=== PATIENT | male | born 1950 | race Two or more races ===

== ENCOUNTER 2024-12-16 12:13 | Emergency (ER) | payer MEDICARE, MEDICAID, SELFPAY ==
[2024-12-16 12:15] VITALS: BMI 26.3
[2024-12-16 12:46] VITALS: BP 160/76; PULSE 93; RESP 18; TEMP 36.5; O2SAT 98; BMI 25.4
--- NOTE | 2024-12-16 12:49 | XR_ITS ---
Examination: CT brain head without contrast. 2-D sagittal coronal reconstructions Date and time of exam:December 16, 2024 1321 hours Comparison July 20, 2024 INDICATIONS: Dizziness headaches onset today CTDI: vol (mGy):53.9 DLP: (mGycm):1095 Technique: Multiple CT axial sections of the brain have been obtained, 5 mm slice thickness. Contrast has not been administered. 2-D sagittal, coronal reconstructions have been obtained Low dose protocols were performed. One or more of the following dose reduction techniques were used; automated exposure control, adjustment of the mA and/or KV according to patient size, use of iterative reconstruction technique. Findings: No significant ventricular enlargement. Intra-axial or extra-axial hemorrhage density is not seen. No mass effect or midline shift Basal cisterns are not remarkable. Fourth ventricle is midline. Cranial vault intact. Impression: Negative for acute hemorrhage, mass effect or midline shift Advise clinical correlation follow-up accordingly
--- NOTE | 2024-12-16 12:49 | EKG_ITS ---
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
--- NOTE | 2024-12-16 12:51 | PD.EDRME ---
Rapid Medical Screening Exam RME Arrival date/time: 12/16/24 12:13 74-year-old male with history of hypertension, type 2 diabetes presents to the emergency room with a chief complaint of a headache, dizziness, weakness, and visual disturbances x 8 days. Patient states he is having spots in his vision as well as blurry vision. I have greeted and performed a focused initial assessment of this patient. A comprehensive ED assessment and evaluation of the patient, analysis of all test results, and completion of the medical decision making process will be conducted by additional ED providers. Chief Complaint: Neuro Symptoms/Deficit Time Seen by Provider: 12/16/24 12:40 Vital signs: Vital Signs Temperature 97.7 F 12/16/24 12:46 Pulse Rate 93 12/16/24 12:46 Respiratory Rate 18 12/16/24 12:46 Blood Pressure 160/76 H 12/16/24 12:46 Pulse Oximetry (%) 98 12/16/24 12:46 Oxygen Delivery Method Room Air 12/16/24 12:46 Vital signs reviewed by provider: Yes
[2024-12-16 13:36] LABS: Basophils # (Auto) 0.1 Thou/mm3 (0.0-0.2); Basophils % (Auto) 1 % (0-2.5); Eosinophils # (Auto) 0.2 Thou/mm3 (0.0-0.5); Eosinophils % (Auto) 3 % (0-10); Hematocrit 40.2 % (41.0-53.0); Hemoglobin 13.7 g/dL (13.5-16.0); Immature Granulocytes % (Auto) 1 % (0-0); Immature Granulocytes Auto 0.03 Thou/mm3 (0.00-0.00); Lymphocytes # (Auto) 0.9 Thou/mm3 (1.0-4.8); Lymphocytes % (Auto) 14 % (10-50); Mean Corpuscular HGB Conc 34.1 g/dl (31.0-37.0); Mean Corpuscular Hemoglobin 28.8 pg (25.0-35.0); Mean Corpuscular Volume 85 fL (80-100); Monocytes # (Auto) 0.5 Thou/mm3 (0.0-0.8); Monocytes % (Auto) 7 % (0-12); Neutrophils % (Auto) 75 % (37-80); Nucleated Red Blood Cell % 0 /100 WBC (0); Platelet Count 201 Thou/mm3 (140-440); RDW Standard Deviation 43.2 fL (35.1-43.9); Red Blood Count 4.75 Miln/mm3 (4.50-5.90); White Blood Count 6.6 Thou/mm3 (3.8-10.6)
[2024-12-16 13:51] LABS: Partial Thromboplastin Time 27.8 Seconds (22.0-36.0); Prothrombin Time 10.9 Seconds (9.0-12.2)
[2024-12-16 13:52] LABS: B-Type Natriuretic Peptide 23 pg/mL (0-100)
[2024-12-16 13:53] LABS: Alanine Aminotransferase 19 U/L (10-49); Albumin, Serum 4.4 gm/dL (3.4-4.8); Albumin/Globulin Ratio 1.6 (1.2-2.2); Alkaline Phosphatase 49 U/L (46-116); Anion Gap 9 (7-16); Aspartate Amino Transferase 21 U/L (0-34); BUN/Creatinine Ratio 14 Ratio (12-20); Bilirubin,Total 0.5 mg/dL (0.3-1.2); Blood Urea Nitrogen 14 mg/dL (9-23); Carbon Dioxide 25.2 mMol/L (20.0-31.0); Chloride 105 mMol/L (98-107); Estimated Creatinine Clearance 60.8 mL/min (>60); Globulin 2.8 gm/dL (2.3-3.5); Glucose 208 mg/dL (74-106); Magnesium 1.6 mg/dL (1.6-2.6); Osmolality,Calculated 284 (275-295); Potassium 3.8 mMol/L (3.4-5.1); Sodium 139 mMol/L (136-145); Total Protein 7.2 gm/dL (5.7-8.2); Troponin I < 0.020 ng/mL (0.0-0.045); eGFR > 60 See Note
--- NOTE | 2024-12-16 18:37 | XR_ITS ---
Examination: CT chest, without intravenous contrast. CT abdomen, without intravenous contrast. CT pelvis, without intravenous contrast. 2-D sagittal and coronal reconstructions. 3-D reconstructions. Date and time of exam:December 16, 2024 1840 hours INDICATIONS: Chest and midline abdominal pain beginning 3 days ago, history kidney stones CTDI vol (mgy) 6.76 DLP (MGycm)535 Technique: Multiple CT images, 3.0 mm slice thickness, obtained chest, abdomen, pelvis, with the high-resolution 64 slice scanner.. Sagittal and coronal 2-D reconstructions are obtained. 3-D reconstructions Low dose protocols were performed. One or more of the following dose reduction techniques were used; automated exposure control, adjustment of the mA and/or KV according to patient size, use of iterative reconstruction technique. Findings: AP dimension ascending thoracic aorta 3.3 cm Pulmonary artery segments are not enlarged. No paratracheal tracheobronchial or bronchopulmonary adenopathy No pneumonia or pulmonary edema Moderate elevation left hemidiaphragm No liver or splenic lesion Gallbladder is degraded by patient motion No pancreatic or adrenal mass 4 mm upper pole left renal calculus No hydronephrosis or ureteral calculi Aorta normal size Normal appendix No bowel obstruction Prostatomegaly AP dimension 5.2 cm Suspicious on this noncontrast study for 3 cm prostate nodule, axial image 306 Contracted urinary bladder Tiny fat-containing inguinal hernias Advanced disc narrowing L1-L2 Moderate narrowing hip joints IMPRESSION: No mediastinal lymphadenopathy No pneumonia or pulmonary edema or pleural disease 4 mm upper pole nonobstructing left renal calculus, no hydronephrosis or ureteral calculi Normal appendix Prostatomegaly, AP dimension 5.2 cm Suspicious for 3 cm prostate nodule, recommend correlation with PSA and consider follow-up transrectal prostate sonography
--- NOTE | 2024-12-16 20:41 | PD.EDDIZZY ---
ED Dizzyness RME/HPI General Chief Complaint: Neuro Symptoms/Deficit Stated Complaint: DIZZINESS, HEADACHE, WEAKNESS X8DAYS Time Seen by Provider: 12/16/24 12:40 Arrival date/time: 12/16/24 12:13 RME / HPI RME / HPI Narrative: 12/16/24 12:13 74-year-old male with history of hypertension, type 2 diabetes presents to the emergency room with a chief complaint of a headache, dizziness, weakness, and visual disturbances x 8 days. Patient states he is having spots in his vision as well as blurry vision. I have greeted and performed a focused initial assessment of this patient. A comprehensive ED assessment and evaluation of the patient, analysis of all test results, and completion of the medical decision making process will be conducted by additional ED providers. This section includes all my notes and documentations, including HPI, PE, and ED course. Marcus Bowden MD HPI: 74-year-old male here to be evaluated with about a week history of on and off posterior headache, dizziness (describes spinning sensation), generalized weakness, and visual disturbances. No speech impairment. No loss of power in the arms or legs. No chest pain or shortness of breath. No numbness or tingling. No fever or chills. No cough or congestion. No other complaints. ROS: All negative except as documented in HPI. Physical Exam: General: Alert and oriented. No acute distress. Eyes: Conjunctivae and lids clear. EOMI. PERRL. ENT: No nasal congestion. Pharynx normal. Tympanic membrane normal bilaterally. Neck: Supple. No lymphadenopathy. No JVD. Heart: RRR. Lungs: No respiratory distress. Good air movement. No rhonchi, wheezing, rales. Chest: No tenderness. Abdomen: Soft and nontender. Normal bowel sounds. No distension. No rebound or guarding. Back: No CVA tenderness. Legs: No clubbing, cyanosis, edema. Skin: Warm and dry. Neuro: Alert and oriented X 3. Cranial Nerves II-XII grossly intact. No peripheral motor deficits. I reviewed all diagnostic test results. My interpretation of the EKG is sinus rhythm with no acute ST?T changes. My review of the CT reports is no acute findings. Blood tests unremarkable. At this point, diagnoses include headache and vertigo. Recommended supportive care and more outpatient workup. Based on my best medical judgment, made decision no further evaluation or treatment indicated at this time. Patient understands and agrees to the discharge instructions customized and printed, see below. Discharge instructions from Dr. Bowden: ? After extensive evaluation, there is no life-threatening condition.? Such as stroke or brain tumor or heart attack. -- Tylenol with codeine for your headache in the back. -- Use scopolamine patch and/or meclizine for your dizziness. -- Increase oral fluid to prevent dehydration.? Maintain clear urine.? If dark or yellow, increase oral fluid. -- And do everything very slowly.? Including moving your head.? And when you sit up or stand up, wait a minute before you progress.? -- See your private doctor on 12/17/2024 for recheck and further care. Ask to review all test results and official radiology reports, to make sure you receive all necessary follow-ups and monitoring. If needed, ask to help you get more care not available here in the ER.? Such as MRI imaging of your brain, physical therapy, table tilt test, and referrals to see specialists (such as neurologist and ENT specialist). -- Read attached handout.? Seek immediate medical care with worsening or with any concerns. Instrucciones de maría elena del Dr. Bowden: ? Tras sarah evaluaci?n exhaustiva, no se post detectado ninguna afecci?n potencialmente mortal, pamela un derrame cerebral, un tumor cerebral o un infarto. -- Tylenol con code?na para el dolor de espalda. -- Use un parche de escopolamina o meclizina para los mareos. -- Aumente la ingesta de l?quidos para prevenir la deshidrataci?n. Mantenga la orina dylan. Si es oscura o amarilla, aumente la ingesta de l?quidos. -- Gunnar todo muy lentamente, incluyendo international bank manager la dorian. Al incorporarse o levantarse, espere un minuto antes de continuar. -- Consulte a plaza m?dico de cabecera el 17/12/2024 para sarah nueva revisi?n y recibir atenci?n adicional. -- Solicite la revisi?n de todos los resultados de las pruebas y los informes radiol?gicos oficiales para asegurarse de recibir todos los seguimientos y la monitorizaci?n necesarios. -- Si es necesario, solicite ayuda para obtener m?s atenci?n que no est? disponible en urgencias. Pamela im?genes por resonancia magn?kenna del cerebro, fisioterapia, prueba de inclinaci?n de la white y derivaciones a especialistas (pamela neur?logos y otorrinolaring?logos). -- Melania el folleto adjunto. Busque atenci?n m?dica inmediata si presenta empeoramiento o cualquier inquietud. Marcus Bowden MD Related Data Home Medications ?Medication ?Instructions ?Recorded ?Confirmed finasteride 5 mg tablet 5 mg PO QDAY 02/15/23 02/15/23 linagliptin 5 mg-metformin ER 1 tab PO QDAY 02/15/23 02/15/23 1,000 mg tablet,extended release 24 hr (Jentadueto XR) oxybutynin chloride 5 mg 5 mg PO QDAY 02/15/23 02/15/23 tablet,extended release 24 hr tamsulosin 0.4 mg capsule 0.4 mg PO BID 02/15/23 02/15/23 Previous Rx's ?Medication ?Instructions ?Recorded lisinopril 10 mg tablet 10 mg PO QDAY #30 tabs 02/18/20 meloxicam 7.5 mg tablet 7.5 mg PO QDAY #14 tabs 02/11/24 ciprofloxacin HCl 500 mg tablet 500 mg PO BID #14 tabs 03/11/24 (Cipro) ibuprofen 600 mg tablet 600 mg PO Q8H PRN pain #20 tabs 07/20/24 acetaminophen 300 mg-codeine 30 mg 2 tab PO Q8H PRN pain #20 tabs 12/16/24 tablet meclizine 25 mg tablet 25 mg PO BID PRN dizziness #20 tabs 12/16/24 scopolamine base 1 mg over 3 days 1 mg topical .q72 hours PRN 12/16/24 transdermal patch (Transderm-Scop) dizziness or vertigo #4 ea Allergies Allergy/AdvReac Type Severity Reaction Status Date / Time Penicillins Allergy Intermediate ANXIETY/CATHERINE Verified 12/16/24 12:18 LUCINATIONS Course Quality Measures none Orders Category Date Time Status EKG (ED ONLY) *Do not use* NOW Care 12/16/24 12:[address] chest abdomen pelvis wo Stat Exams 12/16/24 18:[address] head/brain wo con Stat Exams 12/16/24 12:49 Completed EKG (ED Only) Stat Exams 12/16/24 12:49 Draft B-Type Natriuretic Peptide Stat Lab 12/16/24 13:13 Completed CBC Stat Lab 12/16/24 13:13 Completed Comprehensive Metabolic Panel Stat Lab 12/16/24 13:13 Completed Magnesium Stat Lab 12/16/24 13:13 Completed Partial Thromboplastin Time Stat Lab 12/16/24 13:13 Completed Prothrombin Time with INR Stat Lab 12/16/24 13:13 Completed Troponin I Stat Lab 12/16/24 13:13 Completed Vital Signs Vital signs: Vital Signs Temperature 97.7 F 12/16/24 12:46 Pulse Rate 93 12/16/24 12:46 Respiratory Rate 18 12/16/24 12:46 Blood Pressure 160/76 H 12/16/24 12:46 Pulse Oximetry (%) 98 12/16/24 12:46 Oxygen Delivery Method Room Air 12/16/24 12:46 Dizziness Patient data External records reviewed:: [facility] previous records Clinical information provided by:: patient Social determinants that could affect healthcare access:: none Patient has the following chronic illnesses:: Diabetes How is presenting disease/condition affected by chronic disease/condition?: exacerbated by Evaluation data The following diagnostics were reviewed and interpreted by me:: lab results, radiology exam(s) and EKG tracing(s) Lab and/or radiology exams considered but not ordered:: None Interpretation Summary: Normal diagnostics Medications / Prescriptions Medications or Prescriptions considered but not ordered:: None Medication administrations:: None Consultations Consultation(s) initiated? (list below): No Diagnosis Dizziness Differential Diagnosis: adverse reaction to drug, benign paroxysmal positional vertigo, orthostatic hypotension, vertebral basilar insufficiency, cerebrovascular accident, acute vestibular neuronitis, transient cerebral ischemia and other (Migraine headache, tension headache, MS, dehydration, electrolyte abnormalities) Most likely diagnosis given after review of the tests above:: Vertigo and tension headache Admission Indicated Admission indicated?: not indicated Explain why admission is indicated or not indicated:: There was no indication for admission. Admission Request Was there a request for admission?: No Disposition Plan Disposition Plan: Discharge Discharge Attestation Discharge Attestation: The patient and all family members were given an opportunity to ask questions and understood the discharge instructions. Discharge instructions specifically effects, indications for sooner follow up or return to the emergency department, and the expected course of current diagnosis. Patient condition: Stable Discharge Plan Plan Patient Disposition: HOME (Self Care) Prescriptions/Referrals Prescriptions/Med Rec: New acetaminophen-codeine 300-30 mg tablet 2 tab PO Q8H MDD 6 PRN (Reason: pain) Qty: 20 0RF meclizine 25 mg tablet 25 mg PO BID PRN (Reason: dizziness) Qty: 20 0RF scopolamine base [Transderm-Scop] 1 mg over 3 days patch 3 day 1 mg topical .q72 hours PRN (Reason: dizziness or vertigo) Qty: 4 0RF No Action lisinopril 10 mg tablet 10 mg PO QDAY Qty: 30 0RF tamsulosin 0.4 mg capsule 0.4 mg PO BID Patient Comments: TAKE 1 CAPSULE BY MOUTH TWICE DAILY oxybutynin chloride 5 mg tablet extended release 24hr 5 mg PO QDAY Patient Comments: TAKE 1 TABLET BY MOUTH EVERY DAY finasteride 5 mg tablet 5 mg PO QDAY Patient Comments: TAKE 1 TABLET BY MOUTH EVERY DAY Jentadueto XR 5-1,000 mg tablet, IR - ER, biphasic 24hr 1 tab PO QDAY Patient Comments: TAKE 1 TABLET BY MOUTH EVERY DAY WITH A MEAL meloxicam 7.5 mg tablet 7.5 mg PO QDAY Qty: 14 0RF ciprofloxacin HCl [Cipro] 500 mg tablet 500 mg PO BID Qty: 14 0RF ibuprofen 600 mg tablet 600 mg PO Q8H PRN (Reason: pain) Qty: 20 0RF Referrals: No Primary/Family,Physician [Primary Care Provider] - In 1 week Problem List Clinical Impression: Dizziness, Headache Patient/Caregiver Discharge Instructions Education Materials: ED Dizziness, Uncertain Cause Additional Instructions: Discharge instructions from Dr. Bowden: ? After extensive evaluation, there is no life-threatening condition.? Such as stroke or brain tumor or heart attack. -- Tylenol with codeine for your headache in the back. -- Use scopolamine patch and/or meclizine for your dizziness. -- Increase oral fluid to prevent dehydration.? Maintain clear urine.? If dark or yellow, increase oral fluid. -- And do everything very slowly.? Including moving your head.? And when you sit up or stand up, wait a minute before you progress.? -- See your private doctor on 12/17/2024 for recheck and further care. Ask to review all test results and official radiology reports, to make sure you receive all necessary follow-ups and monitoring. If needed, ask to help you get more care not available here in the ER.? Such as MRI imaging of your brain, physical therapy, table tilt test, and referrals to see specialists (such as neurologist and ENT specialist). -- Read attached handout.? Seek immediate medical care with worsening or with any concerns. Instrucciones de maría elena del Dr. Bowden: ? Tras sarah evaluaci?n exhaustiva, no se post detectado ninguna afecci?n potencialmente mortal, pamela un derrame cerebral, un tumor cerebral o un infarto. -- Tylenol con code?na para el dolor de espalda. -- Use un parche de escopolamina o meclizina para los mareos. -- Aumente la ingesta de l?quidos para prevenir la deshidrataci?n. Mantenga la orina dylan. Si es oscura o amarilla, aumente la ingesta de l?quidos. -- Gunnar todo muy lentamente, incluyendo international bank manager la dorian. Al incorporarse o levantarse, espere un minuto antes de continuar. -- Consulte a plaza m?dico de cabecera el 17/12/2024 para sarah nueva revisi?n y recibir atenci?n adicional. -- Solicite la revisi?n de todos los resultados de las pruebas y los informes radiol?gicos oficiales para asegurarse de recibir todos los seguimientos y la monitorizaci?n necesarios. -- Si es necesario, solicite ayuda para obtener m?s atenci?n que no est? disponible en urgencias. [place] im?genes por resonancia magn?kenna del cerebro, fisioterapia, prueba de inclinaci?n de la white y derivaciones a especialistas (pamela neur?logos y otorrinolaring?logos). -- Melania el folleto adjunto. Busque atenci?n m?dica inmediata si presenta empeoramiento o cualquier inquietud. Print Language: Monegasque Stand Alone Forms: Kate Award Info., Patient Portal Info Letter
[2024-12-16 20:50] VITALS: RESP 18
== END 2024-12-16 20:51 | disposition home or self-care (01) ==
PROVIDERS: Nurse Practitioner Family; Emergency Provider Emergency Medicine
DX: R42 Dizziness and giddiness (principal); R51.9 Headache, unspecified; E11.9 Type 2 diabetes mellitus without complications; I10 Essential (primary) hypertension
CPT/HCPCS: 36415; 70450; 71250; 74176; 80053; 83735; 83880; 84484; 85025; 85610; 85730; 93005; 99284

== ENCOUNTER → 2025-01-13 | Outpatient (BNVA) | payer MEDICARE, MEDICAID, SELFPAY | END | disposition home or self-care (01) | PROVIDERS: PCP Family Medicine; Referring Provider Family Medicine; Visit Provider Urology | DX: N40.1 Benign prostatic hyperplasia with lower urinary tract symptoms (principal); N13.8 Other obstructive and reflux uropathy; N32.81 Overactive bladder; N41.9 Inflammatory disease of prostate, unspecified; N48.0 Leukoplakia of penis; N40.2 Nodular prostate without lower urinary tract symptoms; I10 Essential (primary) hypertension; E11.9 Type 2 diabetes mellitus without complications; E78.00 Pure hypercholesterolemia, unspecified; K21.9 Gastro-esophageal reflux disease without esophagitis; E66.9 Obesity, unspecified; Z68.26 Body mass index [BMI] 26.0-26.9, adult | CPT/HCPCS: 81003; 99212; 99213; G0463 ==

== ENCOUNTER → 2025-01-30 | Outpatient (BNVA) | payer MEDICARE, MEDICAID, SELFPAY | END | disposition home or self-care (01) | PROVIDERS: PCP Family Medicine; Referring Provider Family Medicine; Visit Provider Urology | DX: N40.1 Benign prostatic hyperplasia with lower urinary tract symptoms (principal); R39.12 Poor urinary stream; I10 Essential (primary) hypertension; E78.00 Pure hypercholesterolemia, unspecified; K21.9 Gastro-esophageal reflux disease without esophagitis; E11.9 Type 2 diabetes mellitus without complications | CPT/HCPCS: 51741; 51798 ==

== ENCOUNTER → 2025-02-18 | Outpatient (BNVA) | payer MEDICARE, MEDICAID, SELFPAY | END | disposition home or self-care (01) | PROVIDERS: PCP Family Medicine; Referring Provider Family Medicine; Visit Provider Urology | DX: N42.89 Other specified disorders of prostate (principal); N40.1 Benign prostatic hyperplasia with lower urinary tract symptoms; N13.8 Other obstructive and reflux uropathy; I10 Essential (primary) hypertension; E78.00 Pure hypercholesterolemia, unspecified; K21.9 Gastro-esophageal reflux disease without esophagitis; E11.9 Type 2 diabetes mellitus without complications | CPT/HCPCS: 55700; 76942; 81003; 96372; A4649; J1580; J3490; A9270 ==

== ENCOUNTER 2025-04-30 08:41 | Inpatient (IN) | payer MEDICARE, MEDICAID, SELFPAY ==
[2025-04-30] VITALS (10 sets, daily range): BP systolic 107–141; BP diastolic 61–74; PULSE 44–84; RESP 14–97; TEMP 36.3–36.8; O2SAT 96–98; BMI 26.1
--- NOTE | 2025-04-30 09:17 | PD.EDRME ---
Rapid Medical Screening Exam RME Arrival date/time: 04/30/25 08:41 Chief Complaint: General Adult/Misc Complain Vital signs: Vital Signs Temperature 98.0 F 04/30/25 08:53 Pulse Rate 64 04/30/25 08:53 Respiratory Rate 17 04/30/25 08:53 Blood Pressure 117/70 04/30/25 08:53 Pulse Oximetry (%) 98 04/30/25 08:53 Oxygen Delivery Method Room Air 04/30/25 08:53 Pulse ox is 98% room air Vital signs reviewed by provider: Yes RME Narrative: 74-year-old male presents to urgent care with a complaint of chest pressure with intermittent pain that radiates up to the left upper extremity and then down. This has been ongoing for couple of days. Patient has had this happen in the past and it is intermittent, today he says it is the worst it has ever been.
--- NOTE | 2025-04-30 09:19 | XR_ITS ---
Examination: PA lateral chest 2 views TECHNIQUE: Upright PA lateral chest 2 views Date and time: April 30, 2002 5 0928 hours INDICATIONS: Left-sided chest pain beginning 2 weeks ago. FINDINGS: Normal heart size. Lungs are clear. The osseous structures are intact IMPRESSION: No active disease.
[2025-04-30 10:01] LABS: Basophils # (Auto) 0.1 Thou/mm3 (0.0-0.2); Basophils % (Auto) 1 % (0-2.5); Eosinophils # (Auto) 0.2 Thou/mm3 (0.0-0.5); Eosinophils % (Auto) 3 % (0-10); Hematocrit 39.7 % (41.0-53.0); Hemoglobin 13.3 g/dL (13.5-16.0); Immature Granulocytes Auto 0.03 Thou/mm3 (0.00-0.00); Lymphocytes # (Auto) 0.8 Thou/mm3 (1.0-4.8); Lymphocytes % (Auto) 13 % (10-50); Mean Corpuscular HGB Conc 33.5 g/dl (31.0-37.0); Mean Corpuscular Hemoglobin 29.0 pg (25.0-35.0); Mean Corpuscular Volume 87 fL (80-100); Monocytes # (Auto) 0.6 Thou/mm3 (0.0-0.8); Monocytes % (Auto) 10 % (0-12); Neutrophils # (Auto) 4.5 Thou/mm3 (1.8-7.7); Neutrophils % (Auto) 74 % (37-80); Nucleated Red Blood Cell # 0.00 Thou/mm3 (0.00-0.00); Nucleated Red Blood Cell % 0 /100 WBC (0); Platelet Count 168 Thou/mm3 (140-440); RDW Standard Deviation 44.6 fL (35.1-43.9); Red Blood Count 4.59 Miln/mm3 (4.50-5.90); White Blood Count 6.1 Thou/mm3 (3.8-10.6)
[2025-04-30 10:15] LABS: INR 1.0 (0.9-1.3); Partial Thromboplastin Time 26.2 Seconds (22.0-36.0); Prothrombin Time 10.9 Seconds (9.0-12.2)
[2025-04-30 10:21] LABS: Alanine Aminotransferase 19 U/L (10-49); Albumin, Serum 4.3 gm/dL (3.4-4.8); Albumin/Globulin Ratio 1.8 (1.2-2.2); Alkaline Phosphatase 38 U/L (46-116); Anion Gap 6 (7-16); Aspartate Amino Transferase 24 U/L (0-34); B-Type Natriuretic Peptide 22 pg/mL (0-100); BUN/Creatinine Ratio 14 Ratio (12-20); Bilirubin,Total 0.6 mg/dL (0.3-1.2); Blood Urea Nitrogen 15 mg/dL (9-23); Calcium 9.5 mg/dL (8.3-10.6); Calcium (Corrected) 9.5 mg/dL (8.5-10.1); Carbon Dioxide 26.9 mMol/L (20.0-31.0); Chloride 107 mMol/L (98-107); Creatinine (Component) 1.1 mg/dL (0.6-1.3); Estimated Creatinine Clearance 51.6 mL/min (>60); Globulin 2.4 gm/dL (2.3-3.5); Glucose 147 mg/dL (74-106); LDH (Lactate Dehydrogenase) 271 U/L (120-246); Magnesium 1.6 mg/dL (1.6-2.6); Osmolality,Calculated 283 (275-295); Potassium 4.0 mMol/L (3.4-5.1); Sodium 140 mMol/L (136-145); Total Protein 6.7 gm/dL (5.7-8.2); Troponin I < 0.020 ng/mL (0.0-0.045); eGFR > 60 See Note
--- NOTE | 2025-04-30 10:21 | PC.NURSE ---
PT REPORTS HE HAS A PRESSURE FEELING IN HIS CHEST, DENIES HAVING THE FEELING BEFORE. ALSO REPORTS HAVING PAIN TO RIGHT LOWER BACK THAT RADIATES DOWN TO HIS RIGHT KNEE. PT UPDATED ON POC AND IN AGREEMENT, VSS ON TELE.
[2025-04-30 10:27] LABS: Collection Type, Urine Clean Catch
[2025-04-30 10:34] LABS: Bacteria,Urine Rare; Bilirubin,Urine Negative (Negative); Blood,Urine Negative (Negative); Clarity,Urine Clear (Clear/Hazy); Color,Urine Yellow (Lt Yel-Yel); Glucose, Urine Negative (Negative); Ketones,Urine Negative (Negative); Leukocyte Esterase,Urine Negative (Negative); Nitrite,Urine Negative (Negative); PH,Urine 5.5 (5.0-7.0); Protein,Urine Negative (Neg - Trace); RBC,Urine 1 /hpf (0-3); Specific Gravity,Urine 1.022 (1.001-1.035); Squamous Epithelial Cell,Urine 1 /hpf (0-5); Urobilinogen,Urine Negative mg/dL (0.0-1.0); WBC,Urine 1 /hpf (0-5)
[2025-04-30 10:37] LABS: Amphetamine/Methamp Scrn,U Negative (Negative); Barbiturate Screen,Urine Negative (Negative); Benzodiazepines Screen,Urine Negative (Negative); Benzoylecgonine Screen, Ur Negative (Negative); Fentanyl Screen,Urine Negative (Negative); Opiate Screen,Urine Negative (Negative); THC Screen,Urine Negative (Negative)
--- NOTE | 2025-04-30 11:28 | EDNOTE_ITS ---
<Statement entered by Estela Shukla MD - 04/30/25 15:10> I, Estela Shukla MD, have reviewed the history, exam, and assessment of the patient. I have evaluated the patient independently and agree with the plan of care documented by [ ]. All diagnostic studies were reviewed and discussed. I confirm the diagnosis as documented by the Resident. I was present during the Medical Decision Making for this patient. The patient's plan of care was created between myself and the Resident and consistent with our discussion of the patient's case. ED General RME/HPI General Chief complaint: General Adult/Misc Complain Stated complaint: Burning left upper chest X 15 days,itching Arrival date/time: 04/30/25 08:41 RME / HPI RME / HPI narrative: 74-year-old male presents to urgent care with a complaint of chest pressure with intermittent pain that radiates up to the left upper extremity and then down. This has been ongoing for couple of days. Patient has had this happen in the past and it is intermittent, today he says it is the worst it has ever been. 74-year-old male with past medical history of hypertension, BPH, and DM2 came into the ED with chief complaints of chest pain that has been going on for around 2 weeks now. He states that he has left-sided chest pain that radiates to his left upper extremity. Chest pain is pressure-like in nature and is not exacerbated or relieved with rest or with exertion. He does mention that his chest pain sometimes last all day and sometimes last a few minutes. He also mentions that he has some shortness of breath with exertion, but no chest pain with exertion. Patient follows up outpatient with Dr. Brooke and patient stated that he was supposed to have a procedure for his heart to look at his arteries, but does not remember the name. Patient also states that he has been feeling dizzy, but has not had any nausea or vomiting. Otherwise has no other complaints at this time. Related Data Home Medications ?Medication ?Instructions ?Recorded ?Confirmed linagliptin 5 mg-metformin ER 1 tab PO QDAY 02/15/23 0 02/18/25 1,000 mg tablet,extended release 24 hr (Jentadueto XR) oxybutynin chloride 5 mg 5 mg PO QDAY 02/15/23 tablet,extended release 24 hr clotrimazole-betamethasone 1 1 applic topical BID 12/2502/18/25 %-0.05 % topical cream Previous Rx's ?Medication ?Instructions ?Recorded lisinopril 10 mg tablet 10 mg PO QDAY #30 tabs 02/17 ibuprofen 600 mg tablet 600 mg PO Q8H PRN pain #20 t abs 07/20/24 scopolamine base 1 mg over 3 days 1 mg topical .q72 ho urs PRN 12/16/24 transdermal patch (Transderm-Scop) dizziness or vertig o #4 ea Allergies Allergy/AdvReac Type Severity Reaction Status Date / Time Penicillins Allergy Intermediate ANXIETY/CATHERINE Verified 04/30/25 08:46 LUCINATIONS Review of Systems Review of Systems Systems Reviewed: All systems reviewed, normal except as documented Past Medical History Past Medical History NEUROLOGIC: Negative Neurological Disorders CARDIAC: Positive Cardiac Disorders, Angina, Hypercholesterolemia and Hypertension; Negative Congestive Heart Failure RESPIRATORY: Negative Chronic Obstructive Pulmonary Disease (COPD) GASTROINTESTINAL: Positive Gastrointestinal Disorders and Gastroesophageal Reflux Disease GENITOURINARY: Positive Benign Prostatic Hyperplasia; Negative Genitourinary Disorders or Renal Disease MUSCULOSKELETAL: Positive Musculoskeletal Disorders, Arthritis and Fractures ENDOCRINE: Positive Endocrine Disorders and Diabetes Mellitus Type 2; Negative Diabetes Mellitus Type 1 HEMATOLOGIC: Negative Blood Disorders OTHER HISTORY: Negative Autoimmune Disease Family History FAMILY HISTORY: Negative Family Respiratory Disorders, Family Cardiac Disorders, Family Gastrointestinal Problems, Family Cancer, Family Surgery or Family Anesthesia Reaction Surgical History SURGICAL: Positive Transurethral Resection Social History SMOKING STATUS: Never smoker SUBSTANCE USE: does not use ED Exam Narrative Physical exam: Gen: A&O X 3, NAD HEENT: NCAT, EOMI, Pupils reactive ZACARIAS, not icteric. External ears normal. No rhinorrhea. Moist mucous membranes. Neck: Supple, full range of motion, no observable masses, No meningeal sign. Lungs: No Respiratory distress, clear bilateral. CV: RRR, no murmurs. Abdomen: Soft, nondistended, No rebound tenderness. MSK: No joint swelling, no redness, peripheral pulses presents, lumbar with no edema. Skin: No rashes, petechiae, lesions.. Neuro: No focal neurological deficits appreciated, sensory and motor intact. Psych: Cooperative, appropriate mood and effect. Course Quality Measures none Orders Category Date Time Status COVID-19 Screening Questionnaire NOW Care 04/30/25 11:33 Active Decision to Admit X1 Care 04/30/25 11:33 Active EKG (ED ONLY) *Do not use* NOW Care 04/30/25 09:19 Completed Consult to Cardiology Stat Cons 04/30/25 11:30 Ordered EKG (ED Only) Stat Exams 04/30/25 09:19 Ordered XR chest 2V Stat Exams 04/30/25 09:19 Completed B-Type Natriuretic Peptide Stat Lab 04/30/25 09:39 Completed CBC Stat Lab 04/30/25 09:39 Completed Comprehensive Metabolic Panel Stat Lab 04/30/25 09:39 Completed Drug Screen,Urine Stat Lab 04/30/25 10:18 Completed LDH (Lactate Dehydrogenase) Stat Lab 04/30/25 09:39 Completed Magnesium Stat Lab 04/30/25 09:39 Completed Partial Thromboplastin Time Stat Lab 04/30/25 09:39 Completed Prothrombin Time with INR Stat Lab 04/30/25 09:39 Completed Troponin I Stat Lab 04/30/25 09:39 Completed Troponin I Stat Lab 04/30/25 11:27 Ordered Urinalysis Stat Lab 04/30/25 10:18 Completed Vital Signs Vital signs: Vital Signs Temperature 98.0 F 04/30/25 08:53 Pulse Rate 64 04/30/25 08:53 Respiratory Rate 17 04/30/25 08:53 Blood Pressure 117/70 04/30/25 08:53 Pulse Oximetry (%) 98 04/30/25 08:53 Oxygen Delivery Method Room Air 04/30/25 08:53 Discharge Plan Plan Patient Disposition: Admit Acute Care w/in Hospital Prescriptions/Referrals Prescriptions/Med Rec: No Action clotrimazole-betamethasone 1-0.05 % cream 1 applic topical BID lisinopril 10 mg tablet 10 mg PO QDAY Qty: 30 0RF oxybutynin chloride 5 mg tablet extended release 24hr 5 mg PO QDAY Patient Comments: TAKE 1 TABLET BY MOUTH EVERY DAY Jentadueto XR 5-1,000 mg tablet, IR - ER, biphasic 24hr 1 tab PO QDAY Patient Comments: TAKE 1 TABLET BY MOUTH EVERY DAY WITH A MEAL scopolamine base [Transderm-Scop] 1 mg over 3 days patch 3 day 1 mg topical .q72 hours PRN (Reason: dizziness or vertigo) Qty: 4 0RF ibuprofen 600 mg tablet 600 mg PO Q8H PRN (Reason: pain) Qty: 20 0RF Referrals: Goran Richard MD [Primary Care Provider] - In 1 week Problem List Clinical Impression: Atypical chest pain Patient/Caregiver Discharge Instructions Print Language: Belarusian Stand Alone Forms: Kate Award Info., Patient Portal Info Letter MDM Narrative [facility] hospital course: I saw and assessed the patient personally upon arrival to the room. 11: 15: Saw the patient after reviewing the chart. Initial troponins were negative and EKG did not show any major changes as compared to previous one. Patient's pain has subsided at time of evaluation. 11: 25: Spoke with naphthalene operator helper who stated to admit the patient and that he will consult. 11: 27: Spoke with IM resident for hospital admission. Will look at the patient for admission. Case disclosed with Attending Dr. Gayla Landon PGY2 Disclaimer: Even though this this note was dictated by speech recognition and even though it was carefully revised there may still be minor errors in healthcare associate due to voice recognition software.
[2025-04-30 12:25] LABS: Troponin I < 0.020 ng/mL (0.0-0.045)
[2025-04-30 13:00] LABS: Glucose Estimated Average 134 mg/dL (80-131); Hemoglobin A1C 6.3 % Hgb (4.8-6.0)
[2025-04-30 13:03] LABS: Cardiac Risk Estimate 2.8 RATIO (4.0-6.7); Cholesterol 126 mg/dL (132-200); Free T4 (Free Thyroxine) 1.31 ng/dL (0.89-1.76); HDL Cholesterol 45 mg/dL (40-60); LDL Cholesterol,Calculated 62 mg/dL (0-130); Thyroid Stimulating Hormone 3.46 uIU/mL (0.55-4.78); Triglycerides 94 mg/dL (30-150)
[2025-04-30] MEDS: HEPARIN SOD INJ 5000 UNIT/ML VIAL SC ×2 (13:20→21:57)
--- NOTE | 2025-04-30 17:02 | ESHP_ITS ---
<Statement entered by Rodrick Jay MD - 05/01/25 16:55> Patient was seen and examined at bedside. I agree on the assessment and plan on this note as documented by resident Juani Esqueda PGY1. 74-year-old Ukrainian-speaking male with past medical history of type 2 diabetes mellitus, dyslipidemia, hypertension and BPH who presented to [facility] emergency department on May 01, 2025 with chief complaint of dizziness, cardiac chest pain. Patient's EKG showed no acute ST-T changes, troponin negative. Repeat troponin negative as well. Patient does have underlying symptomatic bradycardia, consulted cardiology, per Dr. Brooke patient was evaluated by him outpatient likely needs pacemaker placement however patient is undecided on the procedure. We will admit patient for ACS workup and symptomatic bradycardia for cardiac evaluation. Hold home medications for now, patient's heart rate does go down to 30s does not sustain however patient is sustaining an low 50s. Patient disposition telemetry, pending cardiology evaluation. Case discussed with attending Dr. Alcala. Rodrick Jay MD PGY-2 Documentation for date of: 04/30/25 HPI History of Present Illness Chief complaint: cardiac chest pressure, SOB on exertion History of present illness: Mr. Matute is a 74 years old male with past medical history of dyslipidemia, diabetes type 2, BPH, hypertension, who presented to ED for 2 weeks of pressure-like pain of the chest, the pain is constant and radiates to the left arm. Patient also endorses dizziness, visual disturbances and shortness of breath on exertion. Patient denies diaphoresis, nausea, vomiting, abdominal pain, urinary symptoms. ED course : - Initial Vitals were BP 117/70, pulse 64, RR 15, temp 98.2, O2 sat 97 on room air. - labs significant for Hemoglobin 13.3, hematocrit 39.7, anion gap 6, glucose 147, alkaline phosphatase 30, lactic dehydrogenase 271, troponin <than 0.020 - EKG done in the ED shows symptomatic bradycardia, imaging included chest x-ray which showed no abnormalities. - In ED, Dr. Brooke was consulted for atypical chest pain. He recommended repeat troponin, EKG and echo. Admitted patient for further evaluation of cardiac chest pain. Past medical history: As above Family history: not pertinent Surgical history: Prostate surgery, Social history: Denies alcohol history, denies smoking history and illicit drug use. Allergies: Penicillin Review of Systems Review of Systems Systems Reviewed: All systems reviewed, normal except as documented Exam Vital Signs Temp Pulse Resp BP Pulse Ox O2 Del Method 98.2 F 60 15 111/71 97 Room Air 04/30/25 12:23 04/30/25 16:09 04/30/25 16:09 04/30/25 16:09 04/30/25 16:09 04/30/25 14:09 Results: Labs 05/01/25 06:09 05/01/25 06:09 Labs: Short CBC 04/30/25 Range/Units 09:39 WBC 6.1 (3.8-10.6) Thou/mm3 Hgb 13.3 L (13.5-16.0) g/dL Hct 39.7 L (41.0-53.0) % Plt Count 168 (140-440) Thou/mm3 BMP 04/30/25 09:39 Sodium 140 Potassium 4.0 Chloride 107 Carbon Dioxide 26.9 BUN 15 Creatinine 1.1 Glucose 147 H Calcium 9.5 Cardiac Enzymes 04/30/25 04/30/25 Range/Units 09:39 11:45 Troponin I < 0.020 < 0.020 (0.0-0.045) ng/mL Liver Function 04/30/25 Range/Units 09:39 Total Bilirubin 0.6 (0.3-1.2) mg/dL AST 24 (0-34) U/L ALT 19 (10-49) U/L Alkaline Phosphatase 38 L (46-116) U/L Albumin 4.3 (3.4-4.8) gm/dL Urine 04/30/25 Range/Units 10:18 Urine Color Yellow (Lt Yel-Yel) Urine Clarity Clear (Clear/Hazy) Urine pH 5.5 (5.0-7.0) Ur Specific [place] 1.022 (1.001-1.035) Urine Protein Negative (Neg - Trace) Urine Glucose (UA) Negative (Negative) Quality Measures Quality Measures none Advance care planning discussed with:: patient Medications Home Medications and Allergies Home Medications ?Medication ?Instructions ?Recorded ?Confirmed ?Type linagliptin 5 mg-metformin ER 1 tab PO QDAY 02/15/23 0 02/18/25 History 1,000 mg tablet,extended release 24 hr (Jentadueto XR) oxybutynin chloride 5 mg 5 mg PO QDAY 02/15/23 History tablet,extended release 24 hr clotrimazole-betamethasone 1 1 applic topical BID 12/2502/18/25 History %-0.05 % topical cream Allergies Allergy/AdvReac Type Severity Reaction Status Date / Time Penicillins Allergy Intermediate ANXIETY/CATHERINE Verified 04/30/25 08:46 LUCINATIONS Visit Medications Acetaminophen (Acetaminophen 325 Mg Tablet) 650 mg PO Q6H PRN PRN Reason: Fever >100.4 and Pain (1-3) Stop: 05/30/25 12:17 Aspirin (Aspirin Ec 81 Mg Tabec) 81 mg PO QDAY [facility] Stop: 05/31/25 08:59 Atorvastatin Calcium (Atorvastatin Calcium 20 Mg Tablet) 40 mg PO HS [facility] Stop: 05/30/25 20:59 Atropine Sulfate (Atropine Sulf Inj 0.1 Mg/Ml Syr 10 Ml) 1 mg IVP Q5MIN PRN PRN Reason: Symptomatic Bradycardia, HR<35 Dextrose (Dextrose 50%-Water Inj 50 Ml Syringe) 25 ml IV Q15MIN PRN PRN Reason: BG 50-70 responsive npo pt Stop: 05/30/25 12:23 Dextrose (Dextrose 50%-Water Inj 50 Ml Syringe) 50 ml IV Q15MIN PRN PRN Reason: BG <50 OR BG <70 & pt unresponsive Stop: 05/30/25 12:23 Glucagon (Glucagon Inj 1 Mg Vial) 1 mg IM Q15MIN PRN PRN Reason: BG <70, and no IV access Heparin Sodium (Porcine) (Heparin Sod Inj 5000 Unit/Ml Vial) 5,000 unit SC Q8HR [facility] Stop: 05/14/25 13:59 Last Admin: 04/30/25 13:20 Dose: 5,000 unit Insulin Human Lispro (Insulin Lispro (Admelog) 1 Unit/0.01 Ml Unit) 0 unit SC [facility]; Protocol Stop: 05/30/25 16:59 Ondansetron HCl (Ondansetron Inj 2 Mg/Ml Inj 2 Ml) 4 mg IVP Q6H PRN; Protocol PRN Reason: NAUSEA OR VOMITING Stop: 05/30/25 12:17 Sennosides (Senna Tablet) 1 tab PO QDAY [facility]; Protocol Stop: 05/31/25 08:59 Assessment & Plan Plan A 74-year-old male past medical history of hypertension, BPH, dyslipidemia, DM type II presented to the ED with atypical constant chest pain radiating to the left arm for 2 weeks, with associated symptoms of dizziness, visual disturbances, shortness of breath on exertion. Admitted for further evaluation of cardiac workup. # Symptomatic bradycardia # Dizziness/visual disturbances Patient has a history of symptomatic bradycardia with heart rate between 30s-50. Patient has already been seen by Dr. Brooke in the past , discussed diagnosis of bradycardia and possibility of pacemaker but patient denied pacemaker placement. Associated with bradycardia symptoms he reports dizziness and visual disturbances. Plan - Cardiology were consulted and recommend to monitor troponin and EKG - Per cardiology recommend cardiac workup for chest pain - Monitor heart rate - Ordered atropine as needed 1mg Iv - Echo ordered # ACS workup # Atypical chest pain Patient reported constant pressure-like chest pain for 2 weeks. Troponin negative repeat troponin was negative, EKG on admission showed bradycardia Plan - Trend troponin - CBC ordered - CMP ordered - Prothrombin time, APTT and INR ordered - Strict I's and O's - Restarted home aspirin 81 mg p.o. # Lqr-xwhvaqa-evrwsqtil type 2 diabetes Patient has a history type 2 diabetes which is managed with home medications Josefina. A1c on admission was 6.3, glucose was 147. Plan: - ISS - Monitor glucose level ? Hypoglycemic protocol in place protocol - Plan Accu-Chek AC # Hyperlipidemia Patient has a history of hyperlipidemia. Admission cholesterol 126. Plan ?Start atorvastatin 40 mg p.o. HS -Pending med rec # HTN Patient has a history of hypertension. He reports taking lisinopril 10 mg p.o. daily Plan - Hold home meds - Pending med rec #BPH Patient has a history of BPH. Had a history of prostate surgery. Patient had undergone a recent prostate biopsy and follow-up urology outpatient Plan - Hold home meds - Pending med rec Hospital Management: Lines: Peripherals IV Diet: Cardiac diet Bowel: Senna DVT Prophylaxis: Heparin SC Disposition: Telemetry pending cardiology evaluation CODE STATUS: Full code Patient seen and assessed under supervision of attending physician Dr. Alcala and discuss with senior resident Dr. Jay PGY-2 Juani Esqueda MD PGY-1, Internal Medicine Attending Provider Attestation/Addendum I attest that I was physically present for the evaluation, physical examination, lab and imaging review of the patient with the residents. I discussed the case with the residents and agree with the findings and plans of care as documented above. Patient is a 74 years old male with past medical history of dyslipidemia, diabetes mellitus who to the ED with complaint of chest pain. Patient has been having these symptoms for 2 weeks, the pain is pressure-like, radiating to his left arm. He also complained of dizziness. He denied any shortness of breath, nausea or vomiting. Vital signs were stable in the ED. Lab results show troponin of less than 0.02. Rest of the labs were also nonconcerning. EKG was done in the ED, showed sinus bradycardia with heart rate around 50s. Chest x- ray was negative for active disease. Cardiology was consulted by ED, who recommended serial troponin, echocardiography, EKG and admission for evaluation of chest pain. We will admit the patient for management of symptomatic bradycardia, chest pain. Ordered atropine as needed patient becomes hemodynamically unstable. Echocardiography is ordered, follow-up troponin ordered as well. Resumed his home aspirin, cardiology following closely, appreciate recommendations. Started on insulin regimen for diabetes. Resumed home atorvastatin Dhiraj Alcala MD
[2025-04-30] MEDS: INSULIN LISPRO (AdmeLOG) 1 UNIT/0.01 ML UNIT SC (17:05)
--- NOTE | 2025-04-30 17:27 | PC.NURSE ---
THIS RN TOOK PT UP TO FLOOR CONNECTED TO TELE W/O INCIDENT. ONCE UPSTAIRS THIS RN SPOKE W/RN ASSUMING CARE TO UPDATE THAT PT WAS MEDICATED W/INSULIN PRIOR TO GOING TO FLOOR.
--- NOTE | 2025-04-30 18:04 | PD.IMCONS ---
HPI Data of Consult Requesting Physician: Dhiraj Alcala MD Primary Care Provider: Goran Richard MD Consult Narrative History of present illness: This is a 74 years old male with past medical history of dyslipidemia, diabetes type 2, BPH, hypertension, Patient was seen in the emergency room with atypical chest pain going on for 2 weeks Patient's prior cardiac workup in the past was negative for any significant coronary artery disease patient is initial EKG does not show any acute ST-T wave changes patient's troponins are negative Patient's heart rate is in the 50 range cc:: cc: Dhiraj Alcala MD Meds Home Medications and Allergies Home Medications ?Medication ?Instructions ?Recorded ?Confirmed ?Type linagliptin 5 mg-metformin ER 1 tab PO QDAY 02/15/23 02/18/25 History 1,000 mg tablet,extended release 24 hr (Jentadueto XR) oxybutynin chloride 5 mg 5 mg PO QDAY 02/15/23 02/18/25 History tablet,extended release 24 hr clotrimazole-betamethasone 1 1 applic topical BID 01/13/25 02/18/25 History %-0.05 % topical cream Allergies Allergy/AdvReac Type Severity Reaction Status Date / Time Penicillins Allergy Intermediate ANXIETY/CATHERINE Verified 04/30/25 08:46 LUCINATIONS Exam Vital Signs Temp Pulse Resp BP Pulse Ox O2 Del Method 98.2 F 60 15 111/71 97 Room Air 04/30/25 12:23 04/30/25 16:09 04/30/25 16:09 04/30/25 16:09 04/30/25 16:09 04/30/25 14:09 Routine HEENT Exam Head: Present normocephalic and atraumatic Eye: Present EOMI and PERRL ENT: Present mucous membranes moist Routine Neck Exam Neck: Present supple and trachea midline Routine Respiratory Exam Respiratory: Present chest non-tender, lungs clear, normal breath sounds and no resp distress Routine Cardiovascular Exam Cardiovascular: Present RRR Routine Abdominal Exam Abdominal: Present soft and normoactive bowel sounds Routine Extremities Exam Extremities: Present full ROM Routine Skin Exam Skin: Present intact, dry and warm Routine Neurological Exam Neurological: Present alert, oriented X3 and CN II-XII intact Routine Psychiatric Exam Psychiatric: Present normal affect and normal thought process Results Labs 05/01/25 06:09 05/01/25 06:09 Labs: Short CBC 04/30/25 Range/Units 09:39 WBC 6.1 (3.8-10.6) Thou/mm3 Hgb 13.3 L (13.5-16.0) g/dL Hct 39.7 L (41.0-53.0) % Plt Count 168 (140-440) Thou/mm3 BMP 04/30/25 09:39 Sodium 140 Potassium 4.0 Chloride 107 Carbon Dioxide 26.9 BUN 15 Creatinine 1.1 Glucose 147 H Calcium 9.5 Cardiac Enzymes 04/30/25 04/30/25 Range/Units 09:39 11:45 Troponin I < 0.020 < 0.020 (0.0-0.045) ng/mL Liver Function 04/30/25 Range/Units 09:39 Total Bilirubin 0.6 (0.3-1.2) mg/dL AST 24 (0-34) U/L ALT 19 (10-49) U/L Alkaline Phosphatase 38 L (46-116) U/L Albumin 4.3 (3.4-4.8) gm/dL Urine 04/30/25 Range/Units 10:18 Urine Color Yellow (Lt Yel-Yel) Urine Clarity Clear (Clear/Hazy) Urine pH 5.5 (5.0-7.0) Ur Specific [place] 1.022 (1.001-1.035) Urine Protein Negative (Neg - Trace) Urine Glucose (UA) Negative (Negative) Assessment and Plan Assessment and plan (1) Chest pain in adult: Status: Acute (2) Diabetes mellitus, type II: Status: Acute (3) Bradycardia: Status: Acute Additional Assessment & Plan Additional Plan: Patient was initially admitted with atypical chest pain Patient's prior cardiac workup was unremarkable in the past Stroke so far EKG does not show any acute ST-T wave changes Troponins are negative Patient could be discharged from cardiac standpoint for outpatient workup
[2025-04-30] MEDS: ATORVASTATIN CALCIUM 20 MG TABLET 40 MG PO (21:57)
[2025-05-01] VITALS: BP 113/68; PULSE 48; PULSE 49; RESP 14; TEMP 36.3; O2SAT 97
--- NOTE | 2025-05-01 01:23 | PC.NURSE ---
notified Dr. Rosales of patient bradycardia 44bmp. patient asleep at this time. per MD notify if lower than 45
[2025-05-01 04:00] VITALS: BP 96/73; PULSE 48; PULSE 52; RESP 12; TEMP 36.3; O2SAT 96
[2025-05-01] MEDS: HEPARIN SOD INJ 5000 UNIT/ML VIAL SC (05:40)
[2025-05-01 06:29] LABS: Basophils # (Auto) 0.0 Thou/mm3 (0.0-0.2); Basophils % (Auto) 1 % (0-2.5); Eosinophils # (Auto) 0.2 Thou/mm3 (0.0-0.5); Eosinophils % (Auto) 4 % (0-10); Hematocrit 38.8 % (41.0-53.0); Hemoglobin 13.1 g/dL (13.5-16.0); Immature Granulocytes Auto 0.02 Thou/mm3 (0.00-0.00); Lymphocytes # (Auto) 1.3 Thou/mm3 (1.0-4.8); Lymphocytes % (Auto) 21 % (10-50); Mean Corpuscular HGB Conc 33.8 g/dl (31.0-37.0); Mean Corpuscular Hemoglobin 29.1 pg (25.0-35.0); Mean Corpuscular Volume 86 fL (80-100); Monocytes # (Auto) 0.7 Thou/mm3 (0.0-0.8); Monocytes % (Auto) 11 % (0-12); Neutrophils # (Auto) 3.8 Thou/mm3 (1.8-7.7); Neutrophils % (Auto) 63 % (37-80); Nucleated Red Blood Cell # 0.00 Thou/mm3 (0.00-0.00); Nucleated Red Blood Cell % 0 /100 WBC (0); Platelet Count 155 Thou/mm3 (140-440); RDW Standard Deviation 43.3 fL (35.1-43.9); Red Blood Count 4.50 Miln/mm3 (4.50-5.90); White Blood Count 5.9 Thou/mm3 (3.8-10.6)
[2025-05-01 06:34] LABS: INR 1.0 (0.9-1.3); Partial Thromboplastin Time 28.8 Seconds (22.0-36.0); Prothrombin Time 11.0 Seconds (9.0-12.2)
[2025-05-01 06:57] LABS: Alanine Aminotransferase 18 U/L (10-49); Albumin, Serum 4.1 gm/dL (3.4-4.8); Albumin/Globulin Ratio 1.8 (1.2-2.2); Alkaline Phosphatase 37 U/L (46-116); Anion Gap 10 (7-16); Aspartate Amino Transferase 21 U/L (0-34); BUN/Creatinine Ratio 11 Ratio (12-20); Bilirubin,Total 0.6 mg/dL (0.3-1.2); Blood Urea Nitrogen 11 mg/dL (9-23); Calcium 9.0 mg/dL (8.3-10.6); Calcium (Corrected) 9.0 mg/dL (8.5-10.1); Carbon Dioxide 25.4 mMol/L (20.0-31.0); Chloride 107 mMol/L (98-107); Creatinine (Component) 1.0 mg/dL (0.6-1.3); Estimated Creatinine Clearance 56.7 mL/min (>60); Globulin 2.3 gm/dL (2.3-3.5); Glucose 100 mg/dL (74-106); Magnesium 1.4 mg/dL (1.6-2.6); Osmolality,Calculated 282 (275-295); Phosphorous 3.5 mg/dL (2.4-5.1); Potassium 4.2 mMol/L (3.4-5.1); Sodium 142 mMol/L (136-145); Total Protein 6.4 gm/dL (5.7-8.2); eGFR > 60 See Note
[2025-05-01 07:15] VITALS: PULSE 53; RESP 20; RESP 96
[2025-05-01 08:00] VITALS: BP 99/63; PULSE 54; PULSE 65; RESP 18; TEMP 36.1; O2SAT 96
[2025-05-01] MEDS: Magnesium Sulfate 4 GM Ivpb 4 GM/50 ML BAG IV (08:42)
[2025-05-01] MEDS: ASPIRIN EC 81 MG TABEC PO (08:43)
--- NOTE | 2025-05-01 11:17 | PC.PT ---
PT eval only. Patient is safe to ambulate to the bathroom and in the halls with no AD or staff assist. RN made aware.
--- NOTE | 2025-05-01 11:49 | PC.SS ---
Patient is a 74 year old male presenting to the hospital for chest pain. VOICE COACH met with patient at bedside, role and reason explained. Patient confirmed demographic information and next of kin, son, Sim Hahn ph:[phone]. Patient reported that he is pre-diabetic, does not use any DME at home and is dependent with ADL?s. Patient reports he is not working and is on disability due to his arm. Patient stated that his PCP is Dr. Richard at [facility] patients next appointment is on 05/02/25. Patients d/c plan is to return home, family will provide transportation. PCP: Dr. Richard Next of Kin: Sim Hahn, son, d/c: Home
--- NOTE | 2025-05-01 11:51 | PC.SS ---
PT informed DAT INSTRUCTOR that patient is not needing DME and ambulates independently.
[2025-05-01 12:00] VITALS: BP 111/67; PULSE 62; PULSE 63; RESP 17; TEMP 36.2; O2SAT 94
--- NOTE | 2025-05-01 13:52 | PC.SS ---
SS update: Pending cardio, possible d/c today.
[2025-05-01 15:30] VITALS: BP 108/68; PULSE 68; RESP 16; TEMP 36.2; O2SAT 96
--- NOTE | 2025-05-01 15:55 | ESDS_ITS ---
<Statement entered by Tamy Antoine DO - 05/01/25 17:33> I, Tamy Antoine DO, attest that I was physically present for the rosario portions of the service and evaluated the patient with the resident and I reviewed and discussed the case with the resident and agree with the resident's findings and plans of care as documented above <Statement entered by Rodrick Jay MD - 05/01/25 17:18> Patient was seen and examined by me personally. I have reviewed the below documentation by the team resident and agree with its findings. Discharge plan was discussed with the attending, Dr. Antoine. Rodrick Jay MD Internal Medicine, PGY-2 Planned Discharge Date 05/01/25 DS: Providers Provider Date of admission: 04/30/25 12:08 Primary care physician: Goran Richard MD Admitting Provider: Dhiraj Alcala MD Attending Provider on Admission: Tamy Antoine DO Consults: 04/30/25 11:30 Consult to Cardiology Stat Comment: Consulting Provider: Radha Brooke 05/01/25 08:25 Referral Physical Therapy Stat Comment: Physician Instructions: Attending Provider on DC: Dr.Karrie Elina DO Discharging Provider: Dr. Tamy Antoine DO Anticipated date of discharge: 05/01/25 DS: Diagnosis Problem List Completed Was Problem List Reviewed/Reconciled?: Yes Hospital Course Hospital Course Hospital course: Summary 63-year-old male past medical history of diabetes type 2, BPH, hypertension. Presented to the ED with 2 weeks of constant pressure-like chest pain with radiation to the left arm, dizziness, visual disturbance, shortness of breath on exertion. Admitted for management of of cardiac chest pain. In in the ED on 04/30/2025, patient had symptomatic bradycardia. Patient's prior cardiac cath in the past about 4 years ago was negative for any significant coronary artery disease per pediatric licensed practical nurse. Cardiology were consulted, EKG did not show any acute ST-T wave changes, patient's troponins were negative. Per cardiology, the patient was previously recommended a pacemaker for bradycardia but currently declines any procedure for the same during this hospitalization as well. Emre nt reports he is under stress due to recent of his . Patient was provided return to ER precautions, including any dizziness, visual disturbances or syncope. Patient states he will follow up with his pediatric licensed practical nurse outpatient. Patient was explained risks and benefits, verbalized understanding. Patient is stable and can be discharged for further cardiac workupout patient. Discharge recommendation: - Follow-up with Dr. Brooke within 1 week of discharge - Avoid NSAIDS due to possible gastritis - Continue rest of medications as previously prescribed - Return to the ED or call EMS is symptoms return and/or worsen Hospital Diagnoses: - Atypical Chest pain, ACS ruled out - Bradycardia, chronic - [id number] type 2 diabetes - Hyperlipidemia - Hypertension - BPH Case discussed with Attending Physician Dr. Antoine and senior resident Dr Jay PGY-2 Juani Esqueda Internal Medicine PGY-1 Time Spent with Patient Time attestation: Total time spent providing and/or coordinating discharge services: Time spent: Greater than 30 minutes Exam Vital Signs Temp Pulse Resp BP Pulse Ox O2 Del Method 97.1 F 62 17 111/67 94 L Room Air 05/01/25 12:05/01/25 12:05/01/25 12:05/01/25 12:05/01/25 12:05/01/25 12:00 Narrative Exam Physical Exam: General: Alert, no acute distress. Skin: Warm, dry, intact, no obvious rash. HEENT: Normocephalic, atraumatic.Normal conjunctiva, PERRL,no scleral icterus Cardiovascular: Sinus Bradycardia, no murmur, +S1/S2. Respiratory: Lungs are clear to auscultation, respirations unlabored, no crackles, no wheezing. Gastrointestinal: Soft, nontender, non-distended. No guarding or rebound tenderness. Extremities: No edema, no cyanosis, no clubbing. 2+ radial pulse bilaterally, 2+ pedal pulse bilaterally. Neuro: No focal deficits observed. Conversant, moving all extremities. No overt cerebellar signs/incoordination. Psychiatric: Cooperative, appropriate affect. Discharge Plan Plan Patient Disposition: HOME (Self Care) Patient condition on transfer: Stable Care Plan Goals: -Follow up with PCP within 1 week of discharge, if you do not have a primary care physician you can come see us at the [facility] by calling [phone] -Follow up outpatient with Surgeon'S Assistant Dr. Brooke outpatient -Please avoid NSAIDs use as they can causes gastritis -Continue rest of medications as previously prescribed -Return to the ED or call EMS if symptoms return and/or worsen Prescriptions/Referrals Prescriptions/Med Rec: New aspirin 81 mg Tablet,Delayed Release (Dr/Ec) 81 mg PO QDAY 30 Days Qty: 30 0RF atorvastatin 40 mg tablet 40 mg PO HS 30 Days Qty: 30 0RF pantoprazole 40 mg tablet,delayed release (DR/EC) 40 mg PO QDAY Qty: 30 0RF Continued clotrimazole-betamethasone 1-0.05 % cream 1 applic topical BID oxybutynin chloride 5 mg tablet extended release 24hr 5 mg PO QDAY Patient Comments: TAKE 1 TABLET BY MOUTH EVERY DAY Jentadueto XR 5-1,000 mg tablet, IR - ER, biphasic 24hr 1 tab PO QDAY Patient Comments: TAKE 1 TABLET BY MOUTH EVERY DAY WITH A MEAL scopolamine base [Transderm-Scop] 1 mg over 3 days patch 3 day 1 mg topical .q72 hours PRN (Reason: dizziness or vertigo) Qty: 4 0RF lisinopril 10 mg tablet 10 mg PO QDAY 30 Days Qty: 30 0RF Discontinued ibuprofen 600 mg tablet 600 mg PO Q8H PRN (Reason: pain) Qty: 20 0RF Referrals: Goran Richard MD [Primary Care Provider] - Radha Brooke MD [Physician] - Patient/Caregiver Discharge Instructions Education Materials: ED Chest Pain, Uncertain Cause Print Language: Yakut Stand Alone Forms: Kate Award Info., Patient Portal Info Letter Discharge Order Discharge Orders: Discharge (Routine); Ordered 05/01/25 Ordered By: Amador Casas Quality Discharge Quality Measures none
== END 2025-05-01 17:36 | disposition home or self-care (01) | DRG 313 ==
LOC: SERX 11:33 → SERHOLD 12:42 → S2NX 17:18
PROVIDERS: Physician Assistant; Admitting Provider Student in an Organized Health Care Education/Training Program; Emergency Provider Emergency Medicine; PCP Family Medicine; Visit Provider Internal Medicine
DX: R07.89 Other chest pain (principal); N40.0 Benign prostatic hyperplasia without lower urinary tract symptoms; I10 Essential (primary) hypertension; R00.1 Bradycardia, unspecified; E11.9 Type 2 diabetes mellitus without complications; K21.9 Gastro-esophageal reflux disease without esophagitis; E78.5 Hyperlipidemia, unspecified; Z63.4 Disappearance and death of family member; Z79.899 Other long term (current) drug therapy; Z88.0 Allergy status to penicillin
CPT/HCPCS: 36415; 71046; 80053; 80061; 80307; 81001; 83036; 83615; 83735; 83880; 84100; 84439; 84443; 84484; 85025; 85610; 85730; 93005; 97161; 99284; J1644; J1815; J3475; A9270

== ENCOUNTER → 2025-05-28 | Outpatient (CLI) | payer MEDICARE, MEDICAID, SELFPAY ==
[2025-06-01 13:49] LABS: PSA, Free 0.48 ng/mL; PSA, Total 1.9 ng/mL (< OR = 4.0)
== END | disposition home or self-care (01) ==
PROVIDERS: PCP Family Medicine; Referring Provider Urology; Visit Provider Urology
DX: R97.20 Elevated prostate specific antigen [PSA] (principal)
CPT/HCPCS: 36415; 84153; 84154